=== PATIENT | female | born 1995 | race African-American/Black ===

== ENCOUNTER 2017-04-19 18:22 | Emergency (ER) | payer OTHER ==
[~2017-04-19] VITALS: Ht 165.1 cm; Wt 56.7 kg
--- NOTE | ~2017-04-19 | CR72 ---
[facility] A Service of [facility] & [facility] RADIOLOGY TEXT RESULTS PATIENT: VALERIE MARTINES LOCATION: [facility] : [birth year] UNIT #: [id number] AGE: [address]: Nikko Raymundo MD SEX: F ORDER DR: [id number] [facility] [address] [place], [place] [address] [id number] E MR#: [id number] #: [id number] NAME: VALERIE MARTINES : 1995 SEX: F STUDY DATE/TIME: 04/19/2017 19:34 UNIT: [facility] ROOM: STUDY DESCRIPTION: CR Chest Single View Portable Attending Physician: Nikko Raymundo M.D. Ordering Physician: Nikko Raymundo M.D. Primary Care Physician: No Primary Care Physician MEDICAL IMAGING REPORT This report is preliminary unless electronic signature is present EXAM Single view of the chest, dated 04/19/2017. COMPARISON None. HISTORY Midsternal chest pain which is worsening today. It has been going on for a week. FINDINGS Frontal view of the chest was obtained. No acute cardiopulmonary disease. Lungs are well-aerated. Heart is of normal size. Bones are unremarkable. Dictated by... Maggy Bain M.D. THIS IS AN ELECTRONICALLY VERIFIED REPORT Maggy Bain M.D. at 04/20/2017 7:56 PM CPR/jt TD: 04/20/2017 00:54 JOB #: [id number] MEDICAL IMAGING REPORT Page 1 of 1 COPY
--- NOTE | ~2017-04-19 | EKG ---
PATIENT: VALERIE MARTINES UNIT #: [id number] Ventricular Rate: 76 BPM Atrial Rate: 76 BPM P-R Interval: 150 ms QRS Duration: 78 ms Q-T Interval: 372 ms QTC Calculation(Bezet): 418 ms P [place]: 45 degrees Calculated R [place]: 20 degrees Calculated T [place]: 21 degrees Diagnosis Line: Normal sinus rhythm with sinus arrhythmia Diagnosis Line: Normal ECG Diagnosis Line: No previous ECGs available Diagnosis Line: Confirmed by POP EVANS MD ([id number]) on Diagnosis Line: 04/21/2017 11:14:40 PM INTERPRETING MD: CRISTINA COULTER
== END 2017-04-19 20:40 | disposition home or self-care (01) ==
LOC: CED 18:22
DX: R07.2 Precordial pain (principal); R06.02 Shortness of breath; R00.2 Palpitations; F41.9 Anxiety disorder, unspecified
CPT/HCPCS: 71010; 93005; 99285